=== PATIENT | male | born 1995 | race Hispanic/Latino ===

== ENCOUNTER 2019-12-14 23:38 | Emergency (ER) | payer OTHER | END 2019-12-15 01:24 | disposition home or self-care (01) | LOC: EDH 23:38 | DX: F41.0 Panic disorder [episodic paroxysmal anxiety] (principal); T40.7X5A Adverse effect of cannabis (derivatives), initial encounter; Y92.89 Other specified places as the place of occurrence of the external cause | CPT/HCPCS: 93005 ==

== ENCOUNTER 2020-06-22 21:45 | Emergency (ER) | payer SELFPAY ==
[2020-06-22] MEDS ORDERED: SODIUM CHLORIDE 0.9% 1000ML 2,000 ML IV ONE (22:42)
[2020-06-22 22:43] LABS: APPEARANCE,URINE Clear (CLEAR); BILIRUBIN,URINE Negative (NEGATIVE); COLOR,URINE Yellow (YELLOW); GLUCOSE, URINE (UA) Negative (NEGATIVE); KETONES,URINE Negative (NEGATIVE); LEUKOCYTE ESTERASE ,URINE Negative (NEGATIVE); NITRATE,URINE Negative (NEGATIVE); OCCULT BLOOD,URINE Negative (NEGATIVE); PH,URINE 6.5 (5.0-8.0); PROTEIN,URINE Negative (NEGATIVE); UROBILINOGEN,URINE 0.2 mg/dL (0.2-1.0)
[2020-06-22 22:48] LABS: BASOPHILS % (AUTO) 0.4 % (0.0-5.0); EOSINOPHILS % (AUTO) 0.9 % (0.0-8.0); HEMATOCRIT 38.8 % (42-54); MEAN CORPUSCULAR HEMOGLOBIN 31.3 pg (27.0-33.0); MEAN CORPUSCULAR HGB CONC 35.1 g/dL (32.0-36.0); MEAN CORPUSCULAR VOLUME 89.4 fL (79-99); MONOCYTES % (AUTO) 6.8 % (3.0-13.0); NEUTROPHILS % (AUTO) 80.6 % (40.0-77.0); PLATELET COUNT (AUTO) 288 K/uL (130-400); RED BLOOD CELL COUNT(AUTO) 4.34 MIL/uL (4.50-6.20); RED CELL DISTRIBUTION WIDTH 10.6 % (11.0-15.5); WHITE BLOOD COUNT (AUTO) 11.4 K/uL (4.8-10.8)
[2020-06-22 23:04] LABS: CREATININE 1.5 mg/dL (0.5-1.5); POTASSIUM 3.6 mmol/L (3.5-5.1)
== END 2020-06-22 23:54 | disposition home or self-care (01) ==
LOC: EDH 21:45
DX: E86.0 Dehydration (principal); Z20.822 Contact with and (suspected) exposure to COVID-19
CPT/HCPCS: 36415; 80048; 81003; 85025; 87426; 96360; 99283; J7030; U0003

== ENCOUNTER 2020-08-02 22:27 | Emergency (ER) | payer OTHER, SELFPAY ==
[2020-08-02 23:26] LABS: APPEARANCE,URINE Clear (CLEAR); BILIRUBIN,URINE Negative (NEGATIVE); COLOR,URINE Yellow (YELLOW); GLUCOSE, URINE (UA) Negative (NEGATIVE); KETONES,URINE Negative (NEGATIVE); LEUKOCYTE ESTERASE ,URINE Negative (NEGATIVE); NITRATE,URINE Negative (NEGATIVE); OCCULT BLOOD,URINE Negative (NEGATIVE); PH,URINE 8.5 (5.0-8.0); PROTEIN,URINE Negative (NEGATIVE); UROBILINOGEN,URINE 0.2 mg/dL (0.2-1.0)
[2020-08-02 23:34] LABS: AMPHET/METH SCREEN,URINE NEGATIVE (NEGATIVE); BARBITURATE SCREEN, URINE NEGATIVE (NEGATIVE); BENZODIAZEPINES SCREEN,URINE NEGATIVE (NEGATIVE); CANNABINOID SCREEN,URINE NEGATIVE (NEGATIVE); COCAINE SCREEN,URINE NEGATIVE (NEGATIVE); OPIATE SCREEN,URINE NEGATIVE (NEGATIVE); PHENCYCLIDINE SCREEN,URINE NEGATIVE (NEGATIVE)
[2020-08-03 00:02] LABS: BASOPHILS % (AUTO) 0.4 % (0.0-5.0); EOSINOPHILS % (AUTO) 1.2 % (0.0-8.0); HEMATOCRIT 39.6 % (42-54); LYMPHOCYTES % (AUTO) 13.5 % (21.0-51.0); MEAN CORPUSCULAR HGB CONC 33.1 g/dL (32.0-36.0); MEAN CORPUSCULAR VOLUME 93.8 fL (79-99); MONOCYTES % (AUTO) 8.8 % (3.0-13.0); NEUTROPHILS % (AUTO) 75.5 % (40.0-77.0); PLATELET COUNT (AUTO) 278 K/uL (130-400); RED BLOOD CELL COUNT(AUTO) 4.22 MIL/uL (4.50-6.20); RED CELL DISTRIBUTION WIDTH 11.3 % (11.0-15.5); WHITE BLOOD COUNT (AUTO) 10.9 K/uL (4.8-10.8)
[2020-08-03 00:14] LABS: CREATININE 1.5 mg/dL (0.5-1.5); POTASSIUM 3.6 mmol/L (3.5-5.1)
[2020-08-03 00:19] LABS: ALBUMIN 4.1 g/dL (3.5-5.0); BILIRUBIN,TOTAL 0.4 mg/dL (0.2-1.0); TOTAL PROTEIN, SERUM 7.1 g/dL (6.0-8.3)
== END 2020-08-03 02:08 | disposition home or self-care (01) ==
LOC: EDH 22:27
DX: E86.0 Dehydration (principal)
CPT/HCPCS: 36415; 80053; 80305; 81003; 85025

== ENCOUNTER 2020-08-03 13:50 | Emergency (ER) | payer OTHER ==
[2020-08-03] MEDS ORDERED: LORAZEPAM 1 MG TABLET ONE (14:23)
[2020-08-03 14:51] LABS: BASOPHILS % (AUTO) 0.3 % (0.0-5.0); EOSINOPHILS % (AUTO) 0.7 % (0.0-8.0); HEMATOCRIT 39.5 % (42-54); LYMPHOCYTES % (AUTO) 9.7 % (21.0-51.0); MEAN CORPUSCULAR HEMOGLOBIN 31.2 pg (27.0-33.0); MEAN CORPUSCULAR HGB CONC 33.2 g/dL (32.0-36.0); MONOCYTES % (AUTO) 6.9 % (3.0-13.0); NEUTROPHILS % (AUTO) 81.8 % (40.0-77.0); PLATELET COUNT (AUTO) 282 K/uL (130-400); RED CELL DISTRIBUTION WIDTH 11.4 % (11.0-15.5); WHITE BLOOD COUNT (AUTO) 12.1 K/uL (4.8-10.8)
[2020-08-03 15:07] LABS: CREATININE 1.2 mg/dL (0.5-1.5); POTASSIUM 3.3 mmol/L (3.5-5.1)
[2020-08-03 15:20] LABS: ALBUMIN 3.9 g/dL (3.5-5.0); BILIRUBIN,TOTAL 0.8 mg/dL (0.2-1.0)
[2020-08-03] MEDS ORDERED: POTASSIUM BICARB/CIT AC 25 MEQ TABLET.EFF ONE (15:33)
[2020-08-03] MEDS ORDERED: SODIUM CHLORIDE 0.9% 1000ML 1,000 ML IV ONE (15:33)
== END 2020-08-03 17:03 | disposition home or self-care (01) ==
LOC: EDH 13:50
DX: M62.82 Rhabdomyolysis (principal)
CPT/HCPCS: 36415; 80053; 82550; 84484; 85025; 96360; 99283; J7030

== ENCOUNTER 2020-12-31 07:19 | Emergency (ER) | payer OTHER ==
[~2020-12-31] VITALS: Ht 180.3 cm; Wt 97.5 kg
[2020-12-31 07:49] VITALS: BP 141/81
[2020-12-31] MEDS: MECLIZINE HCL 25 MG TABLET PO SCH (08:16)
[2020-12-31 09:31] VITALS: BP 124/74
[2020-12-31 10:11] VITALS: BP 123/78
== END 2020-12-31 10:12 | disposition home or self-care (01) ==
LOC: EDH 07:19
DX: F41.9 Anxiety disorder, unspecified (principal); R42 Dizziness and giddiness; K21.9 Gastro-esophageal reflux disease without esophagitis
CPT/HCPCS: 93005

== ENCOUNTER 2023-05-28 11:39 | Emergency (ER) | payer BC, OTHER ==
[~2023-05-28] VITALS: Ht 180.3 cm; Wt 86.6 kg
[2023-05-28 12:42] LABS: BASOPHILS # (AUTO) 0.06 K/uL (0.00-0.20); EOSINOPHILS # (AUTO) 0.17 K/uL (0.00-0.70); EOSINOPHILS % (AUTO) 2.7 % (0.0-8.0); HEMATOCRIT 41.7 % (42-54); IMMATURE GRANULOCYTE ABSOLUTE 0.02 K/uL (0-1); LYMPHOCYTES # (AUTO) 1.4 K/uL (1.0-4.8); MEAN CORPUSCULAR HEMOGLOBIN 31.3 pg (27.0-33.0); MEAN CORPUSCULAR VOLUME 89.5 fL (79-99); MONOCYTES # (AUTO) 0.4 K/uL (0.1-1.0); MONOCYTES % (AUTO) 5.8 % (3.0-13.0); NEUTROPHILS # (AUTO) 4.2 K/uL (1.8-7.7); NEUTROPHILS % (AUTO) 67.2 % (40.0-77.0); PLATELET COUNT (AUTO) 311 K/uL (130-400); RED BLOOD CELL COUNT(AUTO) 4.66 MIL/uL (4.50-6.20); RED CELL DISTRIBUTION WIDTH 11.1 % (11.0-15.5); WHITE BLOOD COUNT (AUTO) 6.3 K/uL (4.8-10.8)
[2023-05-28] MEDS: DiphenhydrAMINE HCL 50 MG/ML VIAL IV ONE (12:44)
[2023-05-28] MEDS: METOCLOPRAMIDE 10 MG/2 ML VIAL IVP ONE (12:44)
[2023-05-28] MEDS: KETOROLAC 30MG VIAL (30MG/ML) IVP ONE (12:44)
[2023-05-28] MEDS: 0.9%NACL 1000ML 1,000 ML IV ONE (12:45)
[2023-05-28 12:55] LABS: CREATININE 1.1 mg/dL (0.5-1.5)
[2023-05-28 13:00] LABS: ALBUMIN 4.7 g/dL (3.5-5.0); BILIRUBIN,TOTAL 0.8 mg/dL (0.2-1.0); TOTAL PROTEIN, SERUM 8.1 g/dL (6.0-8.3)
[2023-05-28] MEDS: DEXAMETHASONE SOD PHOSPHATE 4 MG/ML 1ML VIAL IVP ONE (15:18)
[2023-05-28 15:23] VITALS: BP 121/62; PULSE 72; RESP 18; O2SAT 100
== END 2023-05-28 15:26 | disposition home or self-care (01) ==
LOC: EDH 11:39
DX: G43.909 Migraine, unspecified, not intractable, without status migrainosus (principal); Z98.890 Other specified postprocedural states
CPT/HCPCS: 99284; 96374; 96375; 70450; 96361; 80053; 85025; 36415; J1100; J1200; J7030; J1885; J2765

== ENCOUNTER 2023-05-30 23:52 | Emergency (ER) | payer BC ==
[~2023-05-30] VITALS: Ht 180.3 cm; Wt 88.5 kg
[2023-05-30 23:54] VITALS: BP 155/88; PULSE 65; RESP 20
== END 2023-05-31 00:24 | disposition home or self-care (01) ==
LOC: EDH 23:52
DX: G47.00 Insomnia, unspecified (principal)
CPT/HCPCS: 99281

== ENCOUNTER 2023-06-07 14:18 | Emergency (ER) | payer BC ==
[~2023-06-07] VITALS: Ht 180.3 cm; Wt 88.5 kg
[2023-06-07 14:31] VITALS: BP 155/79; PULSE 74; RESP 14
[2023-06-07] MEDS: KETOROLAC 60 MG VIAL (30MG/ML) IM ONE (15:35)
[2023-06-07] MEDS ORDERED: METH4TAB3 PO (17:09)
[2023-06-07] MEDS ORDERED: IBUP-2077 PO (17:09)
[2023-06-07] MEDS ORDERED: CYCL-309 PO (17:11)
== END 2023-06-07 17:32 | disposition home or self-care (01) ==
LOC: EDH 14:18
DX: M54.50 Low back pain, unspecified (principal); M54.12 Radiculopathy, cervical region
CPT/HCPCS: 99284; 72100; 96372; J1885

== ENCOUNTER 2023-06-19 09:50 | Emergency (ER) | payer BC ==
[~2023-06-19] VITALS: Ht 180.3 cm; Wt 90.7 kg
[~2023-06-19 09:50] MED LIST: CYCL-309 PO; IBUP-2077 PO; METH4TAB3 PO
[2023-06-19 09:55] VITALS: BP 139/79; PULSE 76; RESP 18; O2SAT 99
[2023-06-19] MEDS: METOCLOPRAMIDE 10 MG/2 ML VIAL IM ONE (10:21)
[2023-06-19] MEDS: DiphenhydrAMINE HCL 50 MG/ML VIAL IM ONE (10:22)
[2023-06-19] MEDS: ACETAMINOPHEN 325 MG TAB PO ONE (10:23)
[2023-06-19 10:46] LABS: BASOPHILS # (AUTO) 0.06 K/uL (0.00-0.20); BASOPHILS % (AUTO) 1.1 % (0.0-5.0); EOSINOPHILS # (AUTO) 0.06 K/uL (0.00-0.70); EOSINOPHILS % (AUTO) 1.1 % (0.0-8.0); HEMATOCRIT 40.4 % (42-54); IMMATURE GRANULOCYTE ABSOLUTE 0.01 K/uL (0-1); LYMPHOCYTES # (AUTO) 0.9 K/uL (1.0-4.8); LYMPHOCYTES % (AUTO) 15.8 % (21.0-51.0); MEAN CORPUSCULAR HEMOGLOBIN 31.4 pg (27.0-33.0); MEAN CORPUSCULAR HGB CONC 34.2 g/dL (32.0-36.0); MEAN CORPUSCULAR VOLUME 91.8 fL (79-99); MONOCYTES # (AUTO) 0.4 K/uL (0.1-1.0); MONOCYTES % (AUTO) 7.5 % (3.0-13.0); NEUTROPHILS # (AUTO) 4.1 K/uL (1.8-7.7); NEUTROPHILS % (AUTO) 74.3 % (40.0-77.0); PLATELET COUNT (AUTO) 285 K/uL (130-400); RED CELL DISTRIBUTION WIDTH 10.8 % (11.0-15.5); WHITE BLOOD COUNT (AUTO) 5.6 K/uL (4.8-10.8)
[2023-06-19 10:54] LABS: POTASSIUM 4.1 mmol/L (3.5-5.1)
[2023-06-19 10:59] LABS: ALBUMIN 4.1 g/dL (3.5-5.0); BILIRUBIN,TOTAL 0.7 mg/dL (0.2-1.0); TOTAL PROTEIN, SERUM 7.3 g/dL (6.0-8.3)
[2023-06-19 11:41] LABS: APPEARANCE,URINE CLEAR (CLEAR); BILIRUBIN,URINE NEGATIVE (NEGATIVE); COLOR,URINE COLORLESS (YELLOW); GLUCOSE, URINE (UA) NEGATIVE (NEGATIVE); KETONES,URINE NEGATIVE (NEGATIVE); LEUKOCYTE ESTERASE ,URINE NEGATIVE Leu/uL (NEGATIVE); NITRATE,URINE NEGATIVE (NEGATIVE); OCCULT BLOOD,URINE NEGATIVE (NEGATIVE); PH,URINE 6.5 (5.0-8.0); PROTEIN,URINE NEGATIVE (NEGATIVE); UROBILINOGEN,URINE 0.2 mg/dL (0.2-1.0)
[2023-06-19 11:45] LABS: ADD UA MICROSCOPIC NO
[2023-06-19 12:08] LABS: AMPHET/METH SCREEN,URINE NEGATIVE (NEGATIVE); BARBITURATE SCREEN, URINE POSITIVE (NEGATIVE); BENZODIAZEPINES SCREEN,URINE NEGATIVE (NEGATIVE); CANNABINOID SCREEN,URINE NEGATIVE (NEGATIVE); COCAINE SCREEN,URINE NEGATIVE (NEGATIVE); OPIATE SCREEN,URINE NEGATIVE (NEGATIVE); PHENCYCLIDINE SCREEN,URINE NEGATIVE (NEGATIVE)
== END 2023-06-19 13:02 | disposition home or self-care (01) ==
LOC: EDH 09:50
DX: G43.909 Migraine, unspecified, not intractable, without status migrainosus (principal); F41.9 Anxiety disorder, unspecified; F32.A Depression, unspecified
CPT/HCPCS: 99284; 80053; 80305; 85025; 81003; 36415; 96372 ×2; J1200; J2765

== ENCOUNTER 2024-02-08 03:50 | Emergency (ER) | payer BC ==
[~2024-02-08] VITALS: Ht 180.3 cm; Wt 88.5 kg
[2024-02-08 04:18] VITALS: BP 112/54; PULSE 61; RESP 20; TEMP 98.6; O2SAT 100
--- NOTE | 2024-02-08 05:02 | ERN ---
General Chief Complaint: Lower Extremity Pain/Injury Stated Complaint: RT LEG PRESSURE Time Seen by MD: 03:52 Time Seen by Midlevel: 03:52 Source: patient History of Present Illness Initial Comments Patient is a 28-year-old male with no significant past medical history presenting for evaluation of right lower leg pain and swelling that has been ongoing for the last month. Patient states bruising to his right lower leg started one month ago. The pain developed two weeks ago. He states he was very active in the gym but has not been able to go for the last two weeks because the pain has been out of proportion. He denies any direct injury to the area. Denies any other concerns. Allergies: Coded Allergies: No Known Allergies (Unverified Allergy, Unknown, 06/23/20) Home Meds Active Scripts Cyclobenzaprine HCl (Cyclobenzaprine HCl) 10 Mg Tablet, 10 MG PO TIDP for muscle pain, #30 TAB Prov:FLORINA JOHNSON PERSONNEL COORDINATOR 06/07/23 Ibuprofen (Ibuprofen 800 mg Tab) 800 Mg Tab, 800 MG PO Q8H PRN for fever or pain, #30 TAB 0 Refills Prov:FLORINA JOHNSON PERSONNEL COORDINATOR 06/07/23 Methylprednisolone (Medrol) 4 Mg Tab.ds.pk, 4 MG PO AD, #1 UNIT Prov:FLORINA JOHNSON PERSONNEL COORDINATOR 06/07/23 Past Medical History Past Medical History: Depression, Migraines, Other Medical History Other: CHRONIC BACK PAIN Past Surgical History: Other Surgical History Other: BALLOON RHINOPLASTY Social History Social History: Lives with family ROS Dictation CONSTITUTIONAL: Negative except for HPI HEAD/FACE: Negative except for HPI EENT: Negative except for HPI RESPIRATORY: Negative except for HPI GASTROINTESTINAL/ABDOMINAL: Negative except for HPI GENITOURINARY: Negative except for HPI MUSCULOSKELETAL: Negative except for HPI INTEGUMENTARY: Negative except for HPI NEUROLOGICAL/PSYCH: Negative except for HPI HEMATOLOGIC/LYMPHATIC: Negative except for HPI All Systems Negative, Except as noted above. 13 point review of systems assessed and all negative except for above. Physical Exam Physical Exam Dictation Vital Signs reviewed General Appearance: Alert, oriented x 3, no acute distress, well developed, nourished. Head and Face: non-traumatic. Eyes: PERRL, pink conjunctivas, eyelid no trauma, anterior chamber with arcus senilis. Ears: Pinnas intact and no signs of trauma or erythema ear canals clear and no discharge TM no erythema Nose: No discharge, no bleeding. Oropharynx: Mouth normal, tongue pink, pharynx clear,no erythema, tonsils no exudates, no abscesses noted, mucous membrane moist Neck: Supple, non-tender, no thyromegaly, no masses, no JVD, no bruits Breast:Deferred Chest:No tenderness, no crepitus, no paradoxical movement, no retractions Lungs:Clear, well-ventilated, symmetric, no rales, no wheezing, no rhonchi, no stridor, good breath sounds bilaterally Heart: Regular rate, regular rhythm, no murmur, no gallops Vascular: no peripheral edema, Abdomen: Soft, positive bowel sounds, nondistended, no guarding, nontender, no rebound, no masses no hepatomegaly, no splenomegaly, no Talbot's sign, no hernias. Rectal: Deferred Genital: Deferred Neurological: Normal speech, motor function intact, sensory function intact Musculoskeletal: Neck nontender, full range of motion, back nontender, full range of motion, Extremities: Right calf tenderness Skin: Bruising to the right anterior tib-fib area Lymphatic: Deferred MDM MDM: Patient is a 28-year-old male with no significant past medical history presenting for evaluation of right lower leg pain and swelling that has been ongoing for the last month. Patient states bruising to his right lower leg started one month ago. The pain developed two weeks ago. He states he was very active in the gym but has not been able to go for the last two weeks because the pain has been out of proportion. He denies any direct injury to the area. Denies any other concerns. On physical examination patient is in no acute distress. He is nontoxic appearing. There is bruising to the right anterior tib-fib area. There is right calf tenderness. There is a clinical concern for a deep vein thrombosis. An ultrasound of the right lower extremity was ordered however ultrasound does not show any evidence of a deep vein thrombosis. Patient will be discharged home with supportive management. Differential diagnosis: DVT, calf strain, abrasion, contusion There are no social concerns with this patient. Prescription drug management Prescriptions will include: None Medical management and examination interpretation discussions were had by me with other qualified healthcare professionals as indicated for the patient's care. ED Course Orders Procedure Category Date Status Time Us Venous Doppler US 02/08/24 Resulted Unilateral 03:37 Vital Signs Date Time Temp Pulse Resp B/P (MAP) Pulse Ox O2 Delivery O2 Flow Rate FiO2 02/08/24 04:18 98.6 61 20 112/54 100 Room Air* 0 21 02/08/24 03:51 97.9 51 16 141/81 100 Room Air 02/08/24 03:18 98.6 57 20 111/51 100 Room Air* 0 21 DX & DISP Disposition: Discharge Departure Impression: Primary Impression: Right leg pain Condition: Stable Additional Instructions: Your ultrasound does not show any evidence of a blood clot. You will need to follow up with your primary care provider for further evaluation. If you develop any new or worsening symptoms please report to the ER for further evaluation. Referrals: SELF,REFERRAL (PCP) Time of Disposition: 05:02 I have reviewed the case, and I agree with, Diagnosis and Plan I performed the substantive portion of the visit. I have reviewed and personally made and approve the management plan that is documented in the note by myself or the SACHA. I acknowledge for responsibility for the patient's management plan. RACIEL SMITH Feb 08, 2024 05:02 KELLEY SURESH DO Feb 12, 2024 18:42
--- NOTE | 2024-02-08 08:14 | HMCIMG ---
ULTRASOUND VENOUS DOPPLER RIGHT LOWER EXTREMITY INDICATION: Pain and swelling. TECHNIQUE: Routine grayscale and color Doppler ultrasound of the right lower extremity veins performed. COMPARISON: None. FINDINGS: The demonstrated veins of the right lower extremity including the common femoral vein, femoral vein, and popliteal vein are associated with normal compressibility, augmentation, and flow. Normal respiratory variation was identified. No evidence for echogenic intraluminal thrombus. IMPRESSION: No evidence for deep venous thrombosis.
== END 2024-02-08 05:17 | disposition home or self-care (01) ==
LOC: EDH 03:50
DX: S80.11XA Contusion of right lower leg, initial encounter (principal); M79.661 Pain in right lower leg; G43.909 Migraine, unspecified, not intractable, without status migrainosus; F32.A Depression, unspecified; G89.29 Other chronic pain; M54.50 Low back pain, unspecified; Z79.899 Other long term (current) drug therapy; Z98.890 Other specified postprocedural states; X58.XXXA Exposure to other specified factors, initial encounter; Y93.89 Activity, other specified; Y92.89 Other specified places as the place of occurrence of the external cause; Y99.8 Other external cause status
CPT/HCPCS: 93971